=== PATIENT | male | born 1965 | race Caucasian/White ===

== ENCOUNTER 2018-10-27 08:57 | Outpatient (CLI) | payer OTHER ==
--- NOTE | 2018-10-27 11:29 | MRI Report ---
Reason: ARACHNOID CYST Procedure Date: 10/27/2018 Accession Number: [id number] / [id number] Procedure: MRI - Brain W/O CPT Code: FULL RESULT: EXAM: MRI BRAIN WITHOUT CONTRAST EXAM DATE: 10/27/2018 09:19 AM. CLINICAL HISTORY: 53-year-old man with headaches and history of arachnoid cyst. COMPARISON: None. TECHNIQUE: Multiplanar, multisequence T1-weighted and fluid-sensitive MR sequences of the brain were performed. Sequences optimized for routine evaluation. Other: None. IV Contrast: None. FINDINGS: Parenchyma: No evidence of acute infarct on diffusion weighted sequence. Parenchyma demonstrates normal signal intensity on T1- and T2-weighted sequences. No evidence of prior hemorrhage on susceptibility weighted sequence. Pituitary: Unremarkable. Ventricles and Extra-axial Spaces: Ventricles are nearly symmetric and normal in size for age. Extra-axial spaces demonstrate prominent CSF space in the posterior fossa, consistent with arachnoid cyst or genoveva cisterna magna. This measures up to 2.5 cm in maximum AP dimension and 5.4 cm transverse. Orbits: Unremarkable. Sinuses: Scattered mucosal thickening is present in the paranasal sinuses, likely reflecting chronic sinusitis. Mastoid air cells are clear. Major Vascular Flow Voids: Intact. IMPRESSION: 1. No acute intracranial abnormality. Specifically, no evidence of acute infarct or hemorrhage. 2. Arachnoid cyst or genoveva cisterna magna in the posterior fossa, a benign finding. 3. Scattered mucosal thickening in the paranasal sinuses, most consistent with chronic sinusitis. RADIA
== END 2018-10-27 08:58 | disposition home or self-care (01) ==
LOC: DI 08:57
PROVIDERS: ATTEND Psychiatry & Neurology Neurology
DX: G93.0 Cerebral cysts (principal); R51 Headache
CPT/HCPCS: 70551

== ENCOUNTER 2018-10-27 10:09 | Emergency (ER) | payer OTHER ==
--- NOTE | 2018-10-27 11:35 | XRAY Report ---
Reason: soa Procedure Date: 10/27/2018 Accession Number: [id number] / [id number] Procedure: XR - Chest 2 View X-Ray CPT Code: 07838 FULL RESULT: EXAM: CHEST RADIOGRAPHY EXAM DATE: 10/27/2018 11:27 AM. CLINICAL HISTORY: Soa. COMPARISON: None. TECHNIQUE: 2 views. FINDINGS: Lungs/Pleura: No focal opacities evident. No pleural effusion. No pneumothorax. Normal volumes. Mediastinum: Heart and mediastinal contours are unremarkable. Other: DJD spine IMPRESSION: No active cardiopulmonary disease RADIA
--- NOTE | 2018-10-27 12:27 | ED Physician Documentation ---
PD HPI URI - Stated complaint Stated Complaint: CHEST CONGESTION/FEVER - Chief complaint Chief Complaint: Heent - History obtained from History obtained from: Patient - History of Present Illness Timing - onset: Other (Kind of a sudden onset productive cough with shortness of breath and fatigue starting yesterday. He has a long smoking history and a history of recurrent bronchitis.) Review of Systems Constitutional: denies: Fever, Chills Ears: denies: Loss of hearing, Ear pain Nose: denies: Rhinorrhea / runny nose, Congestion Throat: denies: Sore throat Cardiac: denies: Chest pain / pressure, Palpitations Respiratory: reports: Dyspnea, Cough PD PAST MEDICAL HISTORY - Present Medications Home Medications: Ambulatory Orders Medication Instructions Recorded Confirmed Albuterol Sulf [Ventolin Hfa 1 - 2 puffs INH Q4HR PRN #1 inhaler 10/27/18 Inhaler] Azithromycin [Zithromax] 1 tab PO DAILY #6 tablet 10/27/18 guaiFENesin/CODEINE [Robitussin AC] 5 - 10 ml PO Q6H PRN #120 ml 10/27/18 predniSONE [Deltasone] 20 mg PO [id number] #21 tab 10/27/18 - Allergies Allergies/Adverse Reactions: Allergies Allergy/AdvReac Type Severity Reaction Status Date / Time No Known Drug Allergies Allergy Verified 10/27/18 10:19 PD ED PE NORMAL - General General: Alert and oriented X 3, No acute distress - HEENT HEENT: PERRL, EOMI - Neck Neck: Supple, no meningeal sign, No bony TTP - Cardiac Cardiac: RRR, No murmur - Respiratory Respiratory: No respiratory distress, Other (Rhonchorous Bilateral az R base) - Abdomen Abdomen: Non tender - Neuro Neuro: Alert and oriented X 3, Normal speech - Psych Psych: Normal mood, Normal affect Results - Vitals Vitals: Vital Signs - 24 hr 10/27/18 10:16 Temperature 35.9 C L Heart Rate 99 Respiratory 16 Rate Blood Pressure 129/89 H O2 Saturation 98 Oxygen O2 Source Room air - Rads (name of study) 2v chest Radiology: EMP read contemporaneously (NAD) Departure - Departure Disposition: 01 Home, Self Care Clinical Impression: Acute exacerbation of chronic bronchitis Condition: Good Record reviewed to determine appropriate education?: Yes Instructions: ED Bronchitis Asthmatic Prescriptions: Albuterol Sulf [Ventolin Hfa Inhaler] 1 - 2 puffs INH Q4HR PRN #1 inhaler PRN Reason: Shortness Of Air/Wheezing Azithromycin [Zithromax] 1 tab PO DAILY #6 tablet guaiFENesin/CODEINE [Robitussin AC] 5 - 10 ml PO Q6H PRN #120 ml PRN Reason: Cough predniSONE [Deltasone] 20 mg PO [id number] #21 tab Comments: Call your doctor to arrange a follow-up appointment, make the next available appointment. In the interim, return anytime if worse or if new symptoms develop. Forms: Activity restrictions
[2018-10-27 12:41] VITALS: BP 130/88
== END 2018-10-27 12:40 | disposition home or self-care (01) ==
LOC: ED 10:09
DX: J20.9 Acute bronchitis, unspecified (principal); J42 Unspecified chronic bronchitis
CPT/HCPCS: 71046; 99283

== ENCOUNTER 2018-11-27 13:23 | Emergency (ER) | payer OTHER ==
--- NOTE | 2018-11-27 14:53 | XRAY Report ---
Reason: cough Procedure Date: 11/27/2018 Accession Number: [id number] / [id number] Procedure: XR - Chest 2 View X-Ray CPT Code: 63700 FULL RESULT: EXAM: CHEST RADIOGRAPHY EXAM DATE: 11/27/2018 02:34 PM. CLINICAL HISTORY: Cough. COMPARISON: CHEST 2 VIEW 10/27/2018 11:11 AM. TECHNIQUE: 2 views. FINDINGS: Lungs/Pleura: No focal consolidation, pneumothorax, or pleural effusion. Possible tiny nodule versus nipple shadow overlying the left lower lung zone. Mediastinum: Heart and mediastinal contours are unremarkable. Other: None. IMPRESSION: 1. No evidence of acute cardiopulmonary process. 2. Possible left lower lung zone nodule versus nipple shadow. Recommend repeat frontal chest with nipple markers. RADIA
[2018-11-27] MEDS ORDERED: predniSONE 20 MG TABLET PO STA (18:03)
--- NOTE | 2018-11-27 18:05 | ED Physician Documentation ---
PD HPI URI - Stated complaint Stated Complaint: COUGHING, MUCAS, - Chief complaint Chief Complaint: Resp - History obtained from History obtained from: Patient - History of Present Illness Timing - onset: How many days ago (3) Timing duration: Days (3) Timing details: Gradual onset Pain level max: 0 Pain level now: 0 Associated symptoms: Nasal congestion, Rhinorrhea, Dry cough, Dyspnea (wheezing, not using his inhaler). No: Fever, Chills Contributing factors: Sick contact, COPD / asthma Improves by: Rest Worsened by: Activity, Breathing Similar symptoms before: Diagnosis (bronchitis last month) Recently seen: Not recently seen Review of Systems Constitutional: denies: Fever, Chills Nose: reports: Rhinorrhea / runny nose, Congestion Respiratory: reports: Cough GI: denies: Vomiting : denies: Dysuria Skin: denies: Rash PD PAST MEDICAL HISTORY - Past Medical History Past Medical History: Yes Respiratory: COPD, Other Musculoskeletal: Rheumatoid arthritis - Past Surgical History Past Surgical History: No - Present Medications Home Medications: Ambulatory Orders Medication Instructions Recorded Confirmed Albuterol Sulf [Ventolin Hfa 1 - 2 puffs INH Q4HR PRN #1 inhaler 10/27/18 Inhaler] Azithromycin [Zithromax] 1 tab PO DAILY #6 tablet 10/27/18 guaiFENesin/CODEINE [Robitussin AC] 5 - 10 ml PO Q6H PRN #120 ml 10/27/18 predniSONE [Deltasone] 20 mg PO [id number] #21 tab 10/27/18 Benzonatate [Tessalon Perle] 100 - 200 mg PO TID PRN #30 capsule 11/27/18 predniSONE [Deltasone] 10 mg PO [id number] #42 tab 11/27/18 - Allergies Allergies/Adverse Reactions: Allergies Allergy/AdvReac Type Severity Reaction Status Date / Time No Known Drug Allergies Allergy Verified 11/27/18 14:10 - Social History Does the pt smoke?: Yes Smoking Status: Current every day smoker Does the pt drink ETOH?: Yes Does the pt have substance abuse?: No - Immunizations Immunizations are current?: Yes - POLST Patient has POLST: No PD ED PE NORMAL - Vitals Vital signs reviewed: Yes - General General: Alert and oriented X 3, No acute distress, Well developed/nourished - HEENT HEENT: PERRL, Ears normal, Moist mucous membranes, Pharynx benign - Neck Neck: Supple, no meningeal sign - Cardiac Cardiac: RRR - Respiratory Respiratory: No respiratory distress, Other (Mild wheeze bilaterally) - Abdomen Abdomen: Soft, Non tender, Non distended - Derm Derm: Warm and dry, No rash - Extremities Extremities: No edema - Neuro Neuro: Alert and oriented X 3 - Psych Psych: Normal mood, Normal affect Results - Vitals Vitals: Vital Signs - 24 hr 11/27/18 11/27/18 11/27/18 14:09 16:20 17:57 Temperature 36.0 C L 36.5 C 36.3 C L Heart Rate 82 61 69 Respiratory 16 16 20 Rate Blood Pressure 140/80 H 146/71 H 125/79 O2 Saturation 100 99 98 Oxygen O2 Source Room air - Rads (name of study) cxr Radiology: Prelim report reviewed, EMP read contemporaneously, See rad report (No evidence of acute cardiopulmonary process. Possible left lower lung zone nodule versus nipple shadow. Recommend repeat frontal chest with nipple markers. ) PD MEDICAL DECISION MAKING - ED course Complexity details: reviewed results, re-evaluated patient, considered differential, d/w patient ED course: 53-year-old male presents to the emergency department with what appears to be a COPD flare. Will place on steroids for home. He is well-appearing, nontoxic. Afebrile. No hypoxia or respiratory distress. Will follow up with his doctor for the possible lower left lung zone nodule versus shadow. Patient counseled regarding signs and symptoms for which I believe and urgent re-evaluation would be necessary. Patient with good understanding of and agreement to plan and is comfortable going home at this time This document was made in part using voice recognition software. While efforts are made to proofread this document, sound alike and grammatical errors may occur. Departure - Departure Disposition: 01 Home, Self Care Clinical Impression: Upper respiratory tract infection Qualifiers: URI type: unspecified viral URI Qualified Code(s): J06.9 - Acute upper respiratory infection, unspecified Condition: Good Instructions: ED URI Viral W Wheezing Follow-Up: CONNIE CHANG [Primary Care Provider] - Within 1 week Prescriptions: Benzonatate [Tessalon Perle] 100 - 200 mg PO TID PRN #30 capsule PRN Reason: Cough predniSONE [Deltasone] 10 mg PO [id number] #42 tab Comments: Please use your inhaler every 3-4 hours. Use it with the spacer as it will help work better. Take all medications as prescribed. Return if you worsen. Follow up with your doctor for a repeat chest xray as you may have a small nodule. Discharge Date/Time: 11/27/18 18:19
[2018-11-27 18:06] VITALS: BP 125/79
== END 2018-11-27 18:19 | disposition home or self-care (01) ==
LOC: ED 13:23
DX: J06.9 Acute upper respiratory infection, unspecified (principal); F17.200 Nicotine dependence, unspecified, uncomplicated
CPT/HCPCS: 71046; 99283; J7512

== ENCOUNTER 2019-09-16 15:25 | Outpatient (CLI) | payer OTHER | END 2019-09-16 15:26 | disposition E | LOC: EMS 15:25 | PROVIDERS: ATTEND Surgery | DX: I46.9 Cardiac arrest, cause unspecified (principal) | CPT/HCPCS: A0425; A0429 ==